=== PATIENT | female | born 1955 | race African-American/Black ===

== ENCOUNTER 2024-11-12 08:26 | Emergency (ER) | payer MEDICAID ==
[~2024-11-12] VITALS: Ht 152.4 cm; Wt 80.0 kg
[2024-11-12 08:34] VITALS: TEMP 97.2
--- NOTE | 2024-11-12 08:41 | Physician Documentation ---
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 She takes citalopram, statin, and montelukast. She states that her primary care provider who prescribes her pain meds told her that if she develops any sort of numbness in the extremities she needs to go to the emergency department. She states for the last several days her left knee pain is markedly worse, she reports a lot of stiffness, pain is worse with ambulation. Palliated with the position of comfort. She was told that she is not allowed to take ibuprofen and other NSAIDs in the due to potential interaction with citalopram and causing ulcers. Therefore she has been treating with Tylenol only without significant success. She also reports left-sided flank pain for the same duration of symptoms of three days. The particular palliating or aggravating factors. Did not attempt to treat it. Does not radiate. Not ripping, not tearing. Denies any fever or chills, chest pain difficulty breathing. No concern for tobacco, alcohol or illicit substances use Medication Reconciliation Allergies: Coded Allergies: No Known Allergies (Unverified , 11/12/24) Review of Systems ROS 10 point review of systems was performed and unless noted above in HPI is negat charles for acute process/complaint. Physical Exam Physical Exam Physical Exam GENERAL: Awake, alert, oriented, GCS 15, no apparent distress, non-toxic appearing, answers questions, follows commands appropriately. HEENT: Atraumatic, normocephalic, pupils equal, extraocular muscles intact, sclerae anicteric, mucus membranes moist, oropharynx is clear, no stridor. NECK: supple, full active range of motion, trachea midline, no thyromegaly, no lymphadenopathy, no JVD. CARDIOVASCULAR: regular rate/rhythm, no murmurs/gallops/rubs, Pulses are 2+ in all extremities and symmetric. Capillary refill less than 2 seconds. PULMONARY: Nonlabored, good air movement ,no respiratory distress, speaking in full sentences, clear to auscultation bilaterally, no wheezing, no ronchi, no rales, no accessory muscle use. GASTROINTESTINAL: Soft, non-tender, non-distended, normal active bowel sounds, no organomegaly, no pulsatile masses, no CVA tenderness. NEUROLOGIC: Lucid with normal mental status. Normal facial symmetry. Moves all extremities symmetrically and with purpose. No truncal ataxia. Speech is fluid without evidence of dysarthria or aphasia, no focal deficits appreciated. MUSCULOSKELETAL: There is full range of motion of all extremities. There is no joint pain or joint swelling or joint erythema. There is no muscle pain or tenderness or swelling. EXTREMITIES: warm, well-perfused, no cyanosis, no clubbing, no edema, no acute deformities. Skin: warm, dry, no rashes or lesions, no jaundice, no petechiae orpurpura. No ecchymosis. PSYCHIATRIC: Normal affect, normal insight, normal concentration. Focused exam: [] Progress Results/Orders Results/Orders Orders - DEMETRI BENDER DO Lumbar Spine Limited (11/12/24 08:55) Completed Orders - DEMETRI BENDER DO Electrocardiogram (11/12/24 08:36) Cbc/Diff (11/12/24 08:36) CK (11/12/24 08:36) MG (11/12/24 08:36) CMP (11/12/24 08:36) Hydrocodone/Apap 5/325mg Tab (Idabel 5/32 (11/12/24 08:40) Ketorolac Trometh 30mg/Ml Vial (Toradol (11/12/24 08:40) Lumbar Spine Limited (11/12/24 08:55) Ua W/Microscopic, Cult If Ind (11/12/24 09:17) Medications Received in ER Medications (Trade) Dose Ordered Sig/Karon Route PRN Reason Start Time Stop Time Status Last Admin Dose Admin (Idabel 5/325mg tablet) 1 tab ONCE ONCE PO 11/12/24 08:40 11/12/24 08:41 DC 11/12/24 09:14 1 TAB (Toradol inj. 30mg/ml) 30 mg ONCE ONCE IM 11/12/24 08:40 11/12/24 08:41 DC 11/12/24 09:14 30 MG Vital Signs 11/12/24 11/12/24 08:34 09:14 Temp 97.2 Pulse 105 Resp 18 18 B/P (MAP) 168/112 Pulse Ox 97 O2 Flow Rate 0 Laboratory Tests Test 11/12/24 09:12 11/12/24 09:17 White Blood Count 4.6 Red Blood Count 4.36 Hemoglobin 12.9 Hematocrit 38.4 Mean Corpuscular Volume 88.2 Mean Corpuscular Hemoglobin 29.5 Mean Corpuscular Hemoglobin Concent 33.5 Red Cell Distribution Width 14.5 Platelet Count 243 Mean Platelet Volume 8.6 Neutrophils (%) (Auto) 52.9 Lymphocytes (%) (Auto) 38.4 Monocytes (%) (Auto) 6.8 Eosinophils (%) (Auto) 1.0 Basophils (%) (Auto) 0.9 Neutrophils # (Auto) 2.4 Lymphocytes # (Auto) 1.8 Monocytes # (Auto) 0.3 Eosinophils # (Auto) 0.0 Basophils # (Auto) 0.0 CBC Comment Sodium Level 140 Potassium Level 3.6 Chloride Level 104 Carbon Dioxide Level 27.2 Anion Gap 9 Blood Urea Nitrogen 9 Creatinine 0.82 Estimated GFR/1.73 m2 69 BUN/Creatinine Ratio 11.0 Glucose Level 108 H Calcium Level 9.6 Magnesium Level 1.9 Total Bilirubin 0.7 Aspartate Amino Transf (AST/SGOT) 27 Alanine Aminotransferase (ALT/SGPT) 29 Alkaline Phosphatase 86 Total Creatine Kinase 116 Total Protein 8.3 H Albumin 4.0 Globulin 4.3 Albumin/Globulin Ratio 0.9 L Chemistry Comments Urine Specimen Description Cln catch midstream Urine Color Yellow Urine Clarity Clear Urine pH 6.0 Urine Specific [place] 1.025 Urine Protein Trace Urine Glucose (UA) Negative Urine Ketones Trace H Urine Occult Blood Small Urine Nitrite Negative Urine Bilirubin Small Urine Urobilinogen 0.2 Urine Leukocyte Esterase Negative Urine RBC 3-10 Urine WBC 0-4 Urine Squamous Epithelial Cells Few Urine Bacteria Few Urine Mucus Few Urine Culture Indicated Not ind Volume Urine Centrifuged 10 ml Urine Comment EKG/XRAY/CT/US/VASC/MRI EKG : Additional Comment EKG was obtained and interpreted by myself shows sinus rhythm of 91, normal GA interval, narrow QRS, no QT prolongation, normal axis, no STEMI. Q-wave in three noted. Medical Decision Making Findings Facility Status: ED Holds, RME process The plan was discussed with the patient, who demonstrates clear understanding of the plan and is in agreement with the plan unless otherwise noted in the chart. All questions have been answered, all concerns were addressed unless otherwise documented. I was available throughout their ED stay for frequent reassessment and questions. Differential Diagnoses (considered and possible or likely): [Arthritis flare, dehydration, electrolyte derangement, anxiety, less likely medication interaction side-effect, with respect a left-sided flank pain, pyelitis, pyelonephritis, lumbago has been considerably. Clinically not consistent with sciatica, no evidence of conus medullaris or cauda equina.] ??Differential Diagnoses (considered and unlikely, not requiring evaluation currently): [No evidence of trauma] MDM Data Please see [facility] for the following: Independent Historians and external Records Review. Historian: [Patient] Independent Historians: ?[Patient's son-in-law] Medication Management: [Reviewed medication list] Social History and determinants: [Reviewed] Please see the body of the note for the following: Any independent interpretations of ECG, imaging studies. All vitals signs/haemodynamics, ordered tests were independently reviewed and interpreted by myself. Nursing triage complaint and vitals reviewed, additional nursing notes were reviewed as available and I agree unless otherwise noted or documented in contradiction in the chart Vital Signs: Independently reviewed Labs: Independently interpreted Imaging: Independently interpreted Old Medical Records: Independently reviewed, see [facility] for relevant summary and information Pulse Oximetry: [99%] interpreted as [normal on room air] by me Additionally notably showing: [Hemodynamics reviewed. Initially tachycardic, that improved with rest alone. No evidence of respiratory distress or hypoxia. CBC is normal. Chemistries unremarkable. UA is nondiagnostic for UTI. X-ray of the spine showed no fracture or subluxation.] Tests considered but not ordered include: [Advanced imaging has been considerably does not appear to be necessary. Her presentation isn't consistent with a stroke-like symptoms.] Social Determinants of Health Impact: Patient was evaluated in [facility], or [facility] [place] to healthcare due to below par ratio of patient to medical providers. [] Comorbid Conditions Impacting Present Evaluation and Care/Treatment: [Multiple see list] Management Discussions with other Healthcare Providers: [None] Treatment and Disposition Medication Management (Given or considered): []. See EMR for details Consideration for Hospitalization/Escalation/Deescalation of Care: Admission for observation has been considered, [however the patient is able to tolerate p.o., their symptoms are controlled, they are able to rely on oral medications, and their chief complaint/diagnosis can be managed on outpatient basis.] ?ED Course:?[No clinical deterioration. Well-appearing. No focal deficits.] ?Shared decision making:?[Patient is hemodynamically stable for discharge home with follow with their primary care provider. [ ] Specific and cautious return precautions provided and discussed with full understanding. Any incidental findings were also discussed and follow up recommendations given. [] All questions answered. Patient/family were able to verbalize back return precautions. Patient/family agree to plan. Copies of imaging and laboratory studies were provided.] Code status:?FULL Please see the full Electronic Medical Record for full details of nursing documentation, medications list, other records of complete past medical history and conditions, vital signs, laboratory studies, and any radiologic study interpretations by radiologists. Portions of this note were completed using [employer] dictation software and as a result there may exist minor errors in spelling. I have reviewed elements of past family and social history and agree as included in note. Departure Disposition: 01 HOME / SELF CARE / HOMELESS Impression: Primary Impression: Left flank pain Additional Impressions: Hand tingling Tingling of both feet Circumoral numbness Condition: Stable Discharge Instructions: Flank Pain, Adult, Paresthesia Referrals: NO PRIMARY CARE PROVIDER (PCP) Education Educated: Patient, Family Educated regarding: diagnosis, treatment, prognosis, need for follow up Signature Scribe Signature: No scribe Attestation: This note accurately reflects clinical decisions, work performed by myself, DO YULIA Alexandra NICHOLAS M DO Nov 12, 2024 08:41
--- NOTE | 2024-11-12 08:47 | ELECTROCARDIOGRAPH REPORT ---
[facility] Test Date: 2024-11-12 Test Time: 08:46:00 Pat Name: RAUDEL IBARRA Department: WILL Room: Gender: F [employer] Telephone Clerk: : 1955 Requested By: DEMETRI BENDER Order Number: [id number] Reading MD: Measurements Intervals Roy Rate: 91 P: 63 MA: 131 QRS: 26 QRSD: 95 T: 8 QT: 376 QTc: 463 Interpretive Statements Sinus rhythm Probable left atrial enlargement Borderline T abnormalities, anterior leads Baseline wander in lead(s) V3 Please click the below link to view image of tracing.
[2024-11-12] MEDS: ketorolac trometh 30MG/ML vial 30 MG/ML VIAL IM ONE (09:14)
[2024-11-12] MEDS: HYDROcodone/acetaminophen 5mg/325mg tablet PO ONE (09:14)
[2024-11-12 09:24] LABS: MEAN PLATELET VOLUME 8.6 FL (7.4-10.4); RED CELL DISTRIBUTION WIDTH 14.5 % (11.5-14.5)
--- NOTE | 2024-11-12 09:29 | RADIOLOGY REPORT ---
INDICATION: L back pain COMPARISON: None TECHNIQUE: 3 views of the lumbar spine were obtained. FINDINGS: The lumbar vertebral alignment is normal. Mild degenerative changes most severe at L4-L5 No acute fracture, vertebral compression deformity or aggressive osseous lesions. The paravertebral soft tissues are grossly unremarkable. IMPRESSION: No acute fracture or subluxation.
[2024-11-12 09:41] LABS: CREATININE 0.82 MG/DL (0.40-0.90); TOTAL CARBON DIOXIDE 27.2 MMOL/L (24-32); eCRCL 46 ML/MIN; eGFR 69 ML/MIN
[2024-11-12 09:52] LABS: LEUKOCYTE ESTERASE ,URINE NEGATIVE (Neg); NITRITES, URINE NEGATIVE (Neg); OCCULT BLOOD,URINE SMALL (Neg)
[2024-11-12 09:55] LABS: UA COLLECTION TYPE CLN CATCH MIDSTREAM
[2024-11-12 10:01] LABS: MUCUS STRANDS FEW /LPF (Neg); SQUAMOUS EPITHELIAL CELL,UR FEW /LPF (FEW)
[2024-11-12 10:59] VITALS: BP 162/81; PULSE 77; RESP 19; O2SAT 97
== END 2024-11-12 11:01 | disposition home or self-care (01) ==
LOC: ER 08:27
DX: R10.9 Unspecified abdominal pain (principal); R20.2 Paresthesia of skin; R20.0 Anesthesia of skin; M19.90 Unspecified osteoarthritis, unspecified site
CPT/HCPCS: 36415; 72100; 80053; 81001; 82550; 83735; 85025; 93005; 96372; 99285; J1885